=== PATIENT | female | born 1965 | race Caucasian/White ===

== ENCOUNTER 2020-11-20 05:24 | Inpatient (IN) | payer MEDICAID ==
[2020-11-17 10:41] LABS: BASOPHILS % (AUTO) 0.7 % (0-1); EOSINOPHILS # (AUTO) 0.1 X10'3 (0-0.9); EOSINOPHILS % (AUTO) 3.4 % (0-6); LYMPHOCYTES # (AUTO) 2.2 X10'3 (1.1-4.8); LYMPHOCYTES % (AUTO) 54.1 % (21-51); MEAN CORPUSCULAR HEMOGLOBIN 30.9 PG (27.0-31.0); MEAN CORPUSCULAR HGB CONC 34.7 g/dL (33.0-36.5); MEAN CORPUSCULAR VOLUME 89.2 FL (78-98); MEAN PLATELET VOLUME 7.1 FL (7.4-10.4); MONOCYTES # (AUTO) 0.3 X10'3 (0-0.9); MONOCYTES % (AUTO) 8.3 % (2-12); NEUTROPHILS # (AUTO) 1.4 X10'3 (1.8-7.7); NEUTROPHILS % (AUTO) 33.5 % (42-75); PRE OP HEMATOCRIT 39.9 % (35.0-45.0); PRE OP HEMOGLOBIN 13.8 g/dL (12.0-16.0); PRE OP PLATELET COUNT 334 X10'3 (140-440); RED BLOOD COUNT 4.48 X10'6 (4.20-5.60); RED CELL DISTRIBUTION WIDTH 12.7 % (11.5-14.5)
[2020-11-17 10:47] LABS: ALBUMIN 4.1 G/DL (3.4-5.0); ALBUMIN/GLOBULIN RATIO 1.1 (1.1-1.5); ALKALINE PHOSPHATASE 108 IU/L (46-116); BLOOD UREA NITROGEN 12 MG/DL (7-18); BUN/CREATININE RATIO 22.2 (6.6-38.0); CALCIUM 8.8 MG/DL (8.5-10.1); CHLORIDE 104 MMOL/L (99-107); CREATININE 0.54 MG/DL (0.40-0.90); PRE OP ALT 25 U/L (30-65); PRE OP ANION GAP 8 (8-16); PRE OP AST 24 U/L (10-37); PRE OP BILIRUB, TOTAL 0.3 MG/DL (0.0-1.0); PRE OP GLUCOSE 92 MG/DL (70-104); PRE OP SODIUM 140 MMOL/L (135-145); TOTAL CARBON DIOXIDE 27.9 MMOL/L (24-32); TOTAL PROTEIN 7.7 G/DL (6.4-8.2); eGFR > 90 ML/MIN
[2020-11-17 11:03] LABS: PLATELET ESTIMATE NORMAL; TOTAL CELLS COUNTED 100
[~2020-11-20] VITALS: Ht 162.6 cm; Wt 55.0 kg
[2020-11-20] VITALS (19 sets, daily range): BP systolic 112–149; BP diastolic 56–88
[~2020-11-20 05:24] MED LIST: LISI-790 PO; ringers solution, lacted 1,000 ML IV SCH
[2020-11-20] MEDS ORDERED: ceFOXitin 2GM-NS 100mL ADDvant 100 ML IV ONE (05:30)
[2020-11-20] MEDS ORDERED: famotidine 20mg tablet PO ONE (05:30)
[2020-11-20] MEDS ORDERED: LIDOcaine 1% (10mg/ml) 2ml vial ONE (06:15)
[2020-11-20] MEDS ORDERED: clindamycin phosphate 40gm vag cream ONE (06:51)
[2020-11-20] MEDS ORDERED: LIDOcaine 1% 30ml preserv. free vial ONE (06:52)
[2020-11-20] MEDS ORDERED: LIDOcaine 2% 5ml jelly ONE (07:27)
[2020-11-20] MEDS ORDERED: midazolam 2 mg/2 ml injection ONE (07:27)
[2020-11-20] MEDS ORDERED: fentaNYL /PF 50mcg/ml 5ml ampule ONE (07:27)
[2020-11-20] MEDS ORDERED: acetaminophen 1,000mg/100ml IV 100 ML IV PRN (07:30)
[2020-11-20] MEDS ORDERED: morphine 4 MG/ML inj SYRINge IV PRN (07:30)
[2020-11-20] MEDS ORDERED: morphine 2 MG/ML inj. syringe IV PRN (07:30)
[2020-11-20] MEDS ORDERED: ringers solution, lacted 1,000 ML IV SCH (07:30)
[2020-11-20] MEDS ORDERED: proCHLORperazine 10 MG/2 ml inj IV PRN (07:30)
[2020-11-20] MEDS ORDERED: hydrALAZINE 20mg/ml inj. IV PRN (07:30)
[2020-11-20] MEDS ORDERED: ondansetron/PF 4mg/2ml inj IV PRN ×2 (07:30→10:10)
[2020-11-20] MEDS ORDERED: labetalol 20mg/4ml (5mg/ml) syringe IV PRN (07:30)
[2020-11-20] MEDS ORDERED: meperidine/PF 25mg/ml syringe IV PRN ×3 (07:30)
[2020-11-20] MEDS ORDERED: dexamethasone sod phosphate 4mg/ml inj. ONE (07:55)
[2020-11-20] MEDS ORDERED: LIDOcaine 2% (20mg/ml) 5ml vial ONE (07:55)
[2020-11-20] MEDS ORDERED: propofol inj 20 ML IV ONE (07:55)
[2020-11-20] MEDS ORDERED: rocuronium 10mg/ml inj IV ONE (07:55)
[2020-11-20] MEDS ORDERED: ondansetron/PF 4mg/2ml inj ONE (07:55)
[2020-11-20] MEDS ORDERED: LIDOcaine 1% W/epiNEPHrine 1:200,000 10ml vial ONE (07:58)
[2020-11-20] MEDS ORDERED: fluoroscein sod 10% (100mg/ml) 5ml vial ONE (09:06)
[2020-11-20] MEDS ORDERED: glycopyrrolate 0.2mg/ml inj ONE (10:03)
[2020-11-20] MEDS ORDERED: neostigmine methylsulfate 1 MG/ML 10ml vial ONE (10:03)
[2020-11-20] MEDS ORDERED: mag hydrox/Alum hydrox/simeth 30ml oral suspension PO PRN (10:10)
[2020-11-20] MEDS ORDERED: HYDROmorphone 1 mg/ml syringe IV PRN (10:10)
[2020-11-20] MEDS: ringers solution, lacted 1,000 ML IV SCH ×2 (10:10→18:10)
[2020-11-20] MEDS ORDERED: normal saline 500ML IV soln IV PRN (10:10)
[2020-11-20] MEDS ORDERED: oxyCODONE/APAP 5-325mg tablet PO PRN (10:10)
[2020-11-20] MEDS ORDERED: diphenhydrAMINE 50 mg/ml inj IV PRN (10:10)
[2020-11-20] MEDS ORDERED: temazepam 15mg capsule PO PRN (10:10)
[2020-11-20] MEDS ORDERED: LORazepam 2 mg/ml vial IV PRN (10:10)
--- NOTE | 2020-11-20 10:20 | NUR ---
Received from OR via BED , accompanied by Anesthesiologist DR NICHOLE and report given by Anesthesiolgist. PATIENT WAKING UP,DENIES PAIN, V/S WNL, NEUROVASCULAR CHECKS INTACT, 20G PIV LUE, SCD ON, PACKING AND. . F/C DRAINING CLEAR YELLOW URINE AND WITH PERIPAD WITH SCANT DRAINAGE CDI
--- NOTE | 2020-11-20 11:10 | NUR ---
PATIENT A&OX4 ,DENIES PAIN, V/S WNL, NEUROVASCULAR CHECKS INTACT, 20G PIV LUE, SCD ON, PACKING AND. . F/C DRAINING CLEAR YELLOW URINE AND WITH PERIPAD WITH SCANT DRAINAGE CDI. PATIENT TAKEN TO 4024A WITH ALL BELONGINGS AND HOOKED UP TO MONITORS IN ROOM AND REPORT GIVEN TO RN WHO HAS TAKEN OVER PATIENT CARE.
[2020-11-20] MEDS: ketorolac trometh. 30mg/ml inj. IV PRN ×2 (13:15→19:08)
[2020-11-20] MEDS: simethicone 80mg chew tab PO SCH ×2 (13:17→17:42)
[2020-11-20] MEDS: oxyCODONE/APAP 5-325mg tablet PO PRN ×2 (16:13→22:58)
--- NOTE | 2020-11-20 17:05 | NUR ---
Patient in room [facility]. I have received report from Nicky CHAVEZ and had the opportunity to ask questions and assume patient care.
--- NOTE | 2020-11-20 17:52 | NUR ---
Pt requested pain medications. Toradol was going to be given, it was taken out of omni 30mg bile. Pt changed her mind, cap was removed from vile therefore it had to be wasted. tried to waste medicine having change nurse Meggan as the witness but omni did not process the waste. We attempted but were not successful. Vile wasted in waste container.
--- NOTE | 2020-11-20 18:31 | NUR ---
Patient in room [facility]. I have received report from SCOTT Palacios and had the opportunity to ask questions and assume patient care.
--- NOTE | 2020-11-20 18:42 | NUR ---
Problems reprioritized. Patient report given, questions answered & plan of care reviewed with Rey CHAVEZ.
[2020-11-20] MEDS: docusate sod 100mg capsule PO SCH (20:08)
[2020-11-20] MEDS ORDERED: lisinopril 5mg tablet PO SCH (21:00)
[2020-11-21] VITALS: BP 129/76
[2020-11-21] MEDS: ringers solution, lacted 1,000 ML IV SCH (00:38)
[2020-11-21 04:00] VITALS: BP 137/53
[2020-11-21] MEDS: ketorolac trometh. 30mg/ml inj. IV PRN (05:15)
[2020-11-21 06:30] VITALS: BP 136/61
[2020-11-21 06:30] LABS: BASOPHILS % (AUTO) 0.4 % (0-1); EOSINOPHILS % (AUTO) 0.2 % (0-6); HEMATOCRIT 32.4 % (35.0-45.0); HEMOGLOBIN 11.5 g/dl (12.0-16.0); LYMPHOCYTES # (AUTO) 1.5 X10'3 (1.1-4.8); LYMPHOCYTES % (AUTO) 16.8 % (21-51); MEAN CORPUSCULAR HEMOGLOBIN 31.3 PG (27.0-31.0); MEAN CORPUSCULAR HGB CONC 35.5 g/dL (33.0-36.5); MONOCYTES # (AUTO) 0.7 X10'3 (0-0.9); MONOCYTES % (AUTO) 7.2 % (2-12); NEUTROPHILS # (AUTO) 6.8 X10'3 (1.8-7.7); NEUTROPHILS % (AUTO) 75.4 % (42-75); PLATELET COUNT 275 X10'3 (140-440); RED BLOOD COUNT 3.68 X10'6 (4.20-5.60); RED CELL DISTRIBUTION WIDTH 12.5 % (11.5-14.5)
--- NOTE | 2020-11-21 06:40 | NUR ---
Patient in room [facility]. I have received report from SCOTT Le and had the opportunity to ask questions and assume patient care.
[2020-11-21 06:45] LABS: ALBUMIN 3.2 G/DL (3.4-5.0); ANION GAP 9 (8-16); BLOOD UREA NITROGEN 10 MG/DL (7-18); BUN/CREATININE RATIO 18.2 (6.6-38.0); CALCIUM 8.8 MG/DL (8.5-10.1); CHLORIDE 108 MMOL/L (99-107); CREATININE 0.55 MG/DL (0.40-0.90); GLUCOSE 103 MG/DL (70-104); POTASSIUM 3.8 MMOL/L (3.5-5.1); SODIUM 143 MMOL/L (135-145); TOTAL CARBON DIOXIDE 26.3 MMOL/L (24-32); eGFR > 90 ML/MIN
[2020-11-21] MEDS: simethicone 80mg chew tab PO SCH (08:18)
[2020-11-21] MEDS: docusate sod 100mg capsule PO SCH (08:18)
--- NOTE | 2020-11-21 10:10 | NUR ---
DC inst provided to pt. IV DC'd, tip intact. All belongings sent w/pt. WC to front lobby.
== END 2020-11-21 10:10 | disposition home or self-care (01) | DRG 513 ==
LOC: PAS 05:24 → OBSVTOIN 10:08 → ORTHO 4S 10:08 → UNDOADMOB 10:11 → ORTHO 4S 10:11 → SUR 3N 17:14
PROVIDERS: ADMIT Obstetrics & Gynecology; ATTEND Obstetrics & Gynecology
PROC: 0JQC3ZZ Repair Pelvic Region Subcutaneous Tissue and Fascia, Percutaneous Approach (ICD-10-PCS; 2020-11-20)
PROC: 0UT98ZZ Resection of Uterus, Via Natural or Artificial Opening Endoscopic (ICD-10-PCS; principal; 2020-11-20 07:32)
DX: N81.4 Uterovaginal prolapse, unspecified (principal); Z20.822 Contact with and (suspected) exposure to COVID-19
CPT/HCPCS: 36415; 80048; 80053; 82948; 85007; 85025; 86885; 86900; 86901; 87635; 93005; A4355; A4618; A7000; C1758; G0378; J0694; J1100; J1885; J2001; J2250; J2405; J2704; J2710; J3010; J3490; J7030; J7120